=== PATIENT | female | born 1930 | race Caucasian/White ===

== ENCOUNTER 2017-09-12 21:18 | Inpatient (IN) | payer MEDICARE, MEDICAID ==
[~2017-09-12] VITALS: Ht 165.1 cm; Wt 74.8 kg
[2017-09-12 22:08] LABS: BASOPHILS % (AUTO) 0.6 % (0.0-2.0); EOSINOPHILS % (AUTO) 0.2 % (0.0-7.0); HEMATOCRIT 42.9 % (31.2-41.9); HEMOGLOBIN 14.8 g/dL (10.9-14.3); LYMPHOCYTES # (AUTO) 0.7 K/uL (20.0-40.0); LYMPHOCYTES % (AUTO) 11.6 % (20.5-51.5); MEAN CORPUSCULAR HEMOGLOBIN 30.9 uug (24.7-32.8); MEAN CORPUSCULAR HGB CONC 35 g/dL (32.3-35.6); MEAN CORPUSCULAR VOLUME 89.4 fL (75.5-95.3); MONOCYTES # (AUTO) 0.2 K/uL (2.0-10.0); MONOCYTES % (AUTO) 4.1 % (0.0-11.0); NEUTROPHILS # (AUTO) 4.7 K/uL (1.8-8.9); NEUTROPHILS % (AUTO) 83.5 % (38.5-71.5); PLATELET COUNT (AUTO) 150 K/uL (179-408); RED BLOOD CELL COUNT(AUTO) 4.81 MIL/uL (3.63-4.92); WHITE BLOOD COUNT (AUTO) 5.7 K/uL (3.8-11.8)
[2017-09-12 22:17] LABS: CARBON DIOXIDE 26 mmol/L (21-32); CHLORIDE 95 mmol/L (98-107); CREATININE 0.8 mg/dL (0.6-1.3); GLUCOSE 180 mg/dL (74-106); POTASSIUM 3.4 mmol/L (3.5-5.1); UREA NITROGEN, BLOOD 13 mg/dL (7-18)
[2017-09-12] MEDS ORDERED: CALC-811 PO (22:21)
[2017-09-12] MEDS ORDERED: MEMA5TAB PO (22:21)
[2017-09-12] MEDS ORDERED: LOSA100T15 PO (22:21)
[2017-09-12] MEDS ORDERED: TERA1CAP4 PO (22:21)
[2017-09-12] MEDS ORDERED: MELO15TA13 PO (22:21)
[2017-09-12] MEDS ORDERED: ESCI5TAB PO (22:21)
[2017-09-12] MEDS ORDERED: DONE10TA44 PO (22:21)
[2017-09-12] MEDS ORDERED: PREG100C PO (22:21)
[2017-09-12] MEDS ORDERED: PRAV40TA PO (22:21)
[2017-09-12] MEDS ORDERED: DILT240T12 PO (22:21)
[2017-09-12 22:29] LABS: ALANINE AMINOTRANSFERASE 24 U/L (14-59); ALKALINE PHOSPHATASE 66 U/L (50-136); ASPARTATE AMINOTRANSFERASE 25 U/L (15-37); BILIRUBIN,DIRECT 0.2 mg/dL (0.0-0.2); BILIRUBIN,TOTAL 0.6 mg/dL (0.2-1.0); TOTAL PROTEIN, SERUM 7.2 g/dL (6.4-8.2)
[2017-09-12] MEDS ORDERED: DIAZEPAM 10 MG/2 ML DISP.SYRIN IV ONE (22:30)
[2017-09-12] MEDS ORDERED: LORAZEPAM 2 MG/1 ML VIAL IV ONE (22:45)
[2017-09-12] MEDS ORDERED: ONDANSETRON IV *ER 4 MG/2 ML VIAL IV ONE (22:45)
[2017-09-12] MEDS ORDERED: ONDANSETRON 4 MG/2 ML VIAL ONE (22:47)
--- NOTE | 2017-09-12 22:58 | NUR ---
PT IN ROUTE TO CT IN [facility] WITH TRANSPORTER
--- NOTE | 2017-09-12 23:20 | NUR ---
PT BACK FROM CT IN [facility] WITH TRANSPORTER
--- NOTE | 2017-09-12 23:28 | NUR ---
[facility] FOR [facility]. WAITING FOR DR GRAHAM TO CALL
--- NOTE | 2017-09-12 23:56 | NUR ---
PT'S SON IS REQUESTING PHONE CALL PRIOR TO DISCHARGE FOR CHILD CARE LEAD TEACHER INESSA LAGUNA
[2017-09-13] MEDS ORDERED: LORAZEPAM 2 MG/1 ML VIAL ONE (00:01)
--- NOTE | 2017-09-13 00:05 | NUR ---
REPORT GIVEN TO [facility] NURSE, JOJO PARIS
--- NOTE | 2017-09-13 00:05 | NUR ---
REPAGED [facility] TACTICAL/MOBILE WATCH OFFICER. WAITING FOR DR RUEDA TO CALL BACK
--- NOTE | 2017-09-13 00:08 | NUR ---
DR SANCHEZ SPEAKING WITH DR RUEDA
[2017-09-13] MEDS ORDERED: POTASSIUM CHLORIDE 20 MEQ TAB.PRT.SR PO ONE (00:30)
[2017-09-13] MEDS ORDERED: ACETAMINOPHEN 325 MG TABLET PO PRN (00:30)
[2017-09-13] MEDS ORDERED: HYDROCODONE/APAP 5-325MG TABLET PO PRN (00:30)
[2017-09-13] MEDS ORDERED: Z GUARD REMEDY PASTE 57 GM TUBE TOP PRN (00:30)
[2017-09-13] MEDS ORDERED: MAGNESIUM HYDROXIDE 30 ML LIQUID UDC PO PRN (00:30)
[2017-09-13] MEDS ORDERED: ONDANSETRON 4 MG/2 ML VIAL IV PRN (00:30)
[2017-09-13] MEDS ORDERED: ZOLPIDEM 5 MG TABLET PO PRN (00:30)
[2017-09-13] MEDS ORDERED: IV NORMAL SALINE 1000 ML BAG IV ONE (00:45)
--- NOTE | 2017-09-13 00:45 | NUR ---
Pt. admitted to [facility], under care of Dr. RUEDA Belongs List completed
[2017-09-13 00:57] VITALS: BP 104/80
--- NOTE | 2017-09-13 01:00 | NUR ---
NEW ADMIT FROM ER, ADMITTED FOR R/O STROKE. NO FACIAL DROOPING, NO CONFUSION, DENIES NUMBNESS, NO ACUTE DISTRESS OR ANY DISCOMFORT ON ASSESSMENT. VSS WNL, SAFETY MEASURES IN PLACE, BED ALARM ON, CALL LIGHT WITHIN PATIENT'S REACH
[2017-09-13 04:00] VITALS: BP 128/71
[2017-09-13] MEDS ORDERED: BLOOD SUGAR DIAGNOSTIC 1 EACH STRIP VI SCH (06:00)
[2017-09-13] MEDS: HEPARIN SODIUM,PORCINE 5,000 UNITS/ML VIAL SQ SCH ×3 (06:42→21:39)
[2017-09-13] MEDS: BLOOD SUGAR DIAGNOSTIC 1 EACH STRIP VI SCH ×4 (06:48→20:38)
--- NOTE | 2017-09-13 06:56 | NUR ---
PATIENT SLEPT MOST OF THE NIGHT. NO S/S OF STROKE ON THIS SHIFT. DENIES DIZZINESS, NO FACIAL DROOPING OR SLURRED SPEECH ON THIS SHIFT. SAFETY MEASURES MAINTAINED AT ALL TIMES
[2017-09-13 06:58] LABS: THYROID STIMULATING HORMONE 0.671 mIU/mL (0.358-3.740)
[2017-09-13 08:07] LABS: BASOPHILS % (AUTO) 0.3 % (0.0-2.0); EOSINOPHILS % (AUTO) 0.1 % (0.0-7.0); HEMOGLOBIN 13.9 g/dL (10.9-14.3); LYMPHOCYTES # (AUTO) 0.6 K/uL (20.0-40.0); MEAN CORPUSCULAR HEMOGLOBIN 30.2 uug (24.7-32.8); MEAN CORPUSCULAR HGB CONC 34 g/dL (32.3-35.6); MEAN CORPUSCULAR VOLUME 89.4 fL (75.5-95.3); MONOCYTES # (AUTO) 0.3 K/uL (2.0-10.0); MONOCYTES % (AUTO) 4.8 % (0.0-11.0); NEUTROPHILS # (AUTO) 4.6 K/uL (1.8-8.9); NEUTROPHILS % (AUTO) 83.8 % (38.5-71.5); PLATELET COUNT (AUTO) 157 K/uL (179-408); RED BLOOD CELL COUNT(AUTO) 4.59 MIL/uL (3.63-4.92); WHITE BLOOD COUNT (AUTO) 5.5 K/uL (3.8-11.8)
[2017-09-13 08:09] LABS: CARBON DIOXIDE 24 mmol/L (21-32); CHLORIDE 102 mmol/L (98-107); CREATININE 0.6 mg/dL (0.6-1.3); GLUCOSE 123 mg/dL (74-106); POTASSIUM 4.3 mmol/L (3.5-5.1); UREA NITROGEN, BLOOD 11 mg/dL (7-18)
[2017-09-13 08:21] LABS: ALANINE AMINOTRANSFERASE 27 U/L (14-59); ALKALINE PHOSPHATASE 61 U/L (50-136); ASPARTATE AMINOTRANSFERASE 21 U/L (15-37); BILIRUBIN,TOTAL 0.5 mg/dL (0.2-1.0); CHOLESTEROL 187 mg/dL (<200); HDL CHOLESTEROL 82 mg/dL (40-60); TOTAL PROTEIN, SERUM 6.4 g/dL (6.4-8.2); TRIGLYCERIDES 30 MG/DL (30-150)
[2017-09-13] MEDS: TERAZOSIN 1 MG CAPSULE PO SCH (08:30)
[2017-09-13] MEDS: LOSARTAN POTASSIUM 50 MG TABLET PO SCH (08:30)
[2017-09-13] MEDS: ASPIRIN EC 81 MG TABLET.DR PO SCH (08:31)
[2017-09-13] MEDS: ESCITALOPRAM OXALATE 10 MG TABLET PO SCH (08:31)
[2017-09-13] MEDS: CALCIUM CARB/VITAMIN D 500MG-200UNITS TABLET PO SCH ×2 (08:31→17:08)
[2017-09-13] MEDS: DILTIAZEM HCL CD 240 MG CAP.SR.24H PO SCH (08:32)
[2017-09-13 11:47] VITALS: BP 128/68
--- NOTE | 2017-09-13 14:00 | NUR ---
PT WAS INFORMED OF MRI W/O CONTRAST AT 1800 VIA AMBULANCE. BLUE PHONE WAS USED. DIRECTOR INSTRUMENTATION #[id number]. PT GAVE CONSENT FOR MRI AND GAVE NURSE PERMISSION TO CONTACT INESSA HER SON. PT WAS ALSO AT THIS TIME GIVEN STROKE EDUCATION & PAMPHLET WAS OFFERED. PT HAS AN UNDERSTANDING OF STOKE SYMPTOMS. CONTINUE TO MONITOR PT.
--- NOTE | 2017-09-13 14:20 | NUR ---
1ST ATTEMPT TO INFORM SON INESSA OF PENDING MRI AT 1800.
[2017-09-13 16:17] LABS: *BILIRUBIN,URIN NEGATIVE (NEGATIVE); *BLOOD, URINE NEGATIVE (NEGATIVE); *CLARITY,URINE CLEAR (CLEAR); *COLOR,URINE LIGHT YELLOW (YELLOW); *KETONES,URINE NEGATIVE (NEGATIVE); *PROTEIN,URINE NEGATIVE (NEGATIVE); *UROBILINOGEN,URINE 0.2 E.U./dl (NORMAL); LEUKOCYTE ESTERASE ,URINE TRACE (NEGATIVE); NITRITE, URINE NEGATIVE (NEGATIVE); UGLUCOSE NEGATIVE (NEGATIVE)
[2017-09-13 16:25] LABS: BACTERIA,URINE NONE SEEN /HPF (NONE SEEN); RBC,URINE 0-3 /HPF (0-3); SQUAMOUS EPITHELIAL CELL,UR FEW /HPF (NONE SEEN)
[2017-09-13 16:34] LABS: *AMPHETAMINE, URINE NEGATIVE (NEGATIVE); *BARBITURATE, URINE NEGATIVE (NEGATIVE); *CANNABINOID, URINE NEGATIVE (NEGATIVE); *COCCAINE, URINE NEGATIVE (NEGATIVE); *OPIATE, URINE NEGATIVE (NEGATIVE); *PHENCYCLIDINE SCREEN,URINE NEGATIVE (NEGATIVE)
[2017-09-13 16:37] VITALS: BP 134/75
[2017-09-13] MEDS ORDERED: LORAZEPAM 2 MG/1 ML VIAL IV ONE (16:45)
--- NOTE | 2017-09-13 18:15 | NUR ---
PT IS AT [place] GETTING A MRI W/O CONTRAST OF THE BRAIN. HAS NOT RETURNED.
[2017-09-13 20:00] VITALS: BP 146/70
--- NOTE | 2017-09-13 20:00 | NUR ---
Pt observed to be resting at this time with son at bedside. No complaints of pain or dizziness at this time. Bed in low, locked position. Call light within reach. Tele noted to be sinus rhythm with HR at 68. Will continue to monitor closely.
[2017-09-13] MEDS ORDERED: MELOXICAM 7.5 MG TABLET PO SCH (21:00)
[2017-09-13] MEDS ORDERED: MEMANTINE HCL 5 MG TABLET PO SCH (21:00)
[2017-09-13] MEDS ORDERED: PREGABALIN 100 MG CAPSULE PO SCH (21:00)
[2017-09-13] MEDS ORDERED: ATORVASTATIN 10 MG TABLET PO SCH (21:00)
[2017-09-13] MEDS ORDERED: DONEPEZIL 10 MG TABLET PO SCH (21:00)
[2017-09-14] VITALS: BP 131/71
[2017-09-14] MEDS ORDERED: LEVOFLOXACIN 500 MG/D5W 500 MG in PREMIXED 1 EACH IV SCH ×2
[2017-09-14] MEDS ORDERED: LEVOFLOXACIN 500 MG/D5W 100 ML ONE (00:01)
[2017-09-14 04:00] VITALS: BP 120/67
--- NOTE | 2017-09-14 05:24 | NUR ---
Pt slept comfortably throughout the night. All needs attended to. No dizziness noted at this time. Bed in low, locked position with bed alarm on. Call light within reach. Will endorse accordingly.
[2017-09-14 06:47] LABS: BASOPHILS # (AUTO) 0.1 K/uL (0.0-8.0); BASOPHILS % (AUTO) 1.1 % (0.0-2.0); EOSINOPHILS # (AUTO) 0.1 K/uL (0.0-0.7); EOSINOPHILS % (AUTO) 1.5 % (0.0-7.0); HEMOGLOBIN 13.7 g/dL (10.9-14.3); LYMPHOCYTES # (AUTO) 1.5 K/uL (20.0-40.0); LYMPHOCYTES % (AUTO) 28.7 % (20.5-51.5); MEAN CORPUSCULAR HEMOGLOBIN 30.7 uug (24.7-32.8); MEAN CORPUSCULAR HGB CONC 34 g/dL (32.3-35.6); MEAN CORPUSCULAR VOLUME 89.8 fL (75.5-95.3); MONOCYTES # (AUTO) 0.4 K/uL (2.0-10.0); MONOCYTES % (AUTO) 8.4 % (0.0-11.0); NEUTROPHILS # (AUTO) 3.1 K/uL (1.8-8.9); NEUTROPHILS % (AUTO) 60.3 % (38.5-71.5); PLATELET COUNT (AUTO) 150 K/uL (179-408); RED BLOOD CELL COUNT(AUTO) 4.45 MIL/uL (3.63-4.92); WHITE BLOOD COUNT (AUTO) 5.2 K/uL (3.8-11.8)
[2017-09-14 07:01] LABS: CARBON DIOXIDE 27 mmol/L (21-32); CHLORIDE 101 mmol/L (98-107); CHOLESTEROL 179 mg/dL (<200); CREATININE 0.6 mg/dL (0.6-1.3); GLUCOSE 92 mg/dL (74-106); HDL CHOLESTEROL 72 mg/dL (40-60); MAGNESIUM 1.7 mg/dL (1.8-2.4); PHOSPHOROUS 2.2 mg/dL (2.5-4.9); TRIGLYCERIDES 64 MG/DL (30-150); UREA NITROGEN, BLOOD 13 mg/dL (7-18)
[2017-09-14] MEDS: DILTIAZEM HCL CD 240 MG CAP.SR.24H PO SCH (08:01)
[2017-09-14] MEDS: ESCITALOPRAM OXALATE 10 MG TABLET PO SCH (08:02)
[2017-09-14] MEDS: CALCIUM CARB/VITAMIN D 500MG-200UNITS TABLET PO SCH ×2 (08:03→16:10)
[2017-09-14] MEDS: LOSARTAN POTASSIUM 50 MG TABLET PO SCH (08:04)
[2017-09-14] MEDS: ASPIRIN EC 81 MG TABLET.DR PO SCH (08:04)
[2017-09-14] MEDS: TERAZOSIN 1 MG CAPSULE PO SCH (08:05)
[2017-09-14 12:05] VITALS: BP 118/68
[2017-09-14] MEDS ORDERED: MAGNESIUM OXIDE 400 MG TABLET PO ONE (13:00)
[2017-09-14] MEDS ORDERED: NEUTRA PHOS PACKET PO ONE (13:00)
[2017-09-14 15:39] VITALS: BP 135/42
[2017-09-14] MEDS ORDERED: LEVO500T2 PO (17:20)
--- NOTE | 2017-09-14 18:14 | NUR ---
PT D/C WITH ALL BELONGINGS, VALUABLES, PRESCRIPTIONS, AND EXIT CARE PACKET. ID BAND AND IV REMOVED. PT WAS PICKED UP BY SON INESSA WHO WILL BE TAKING HER HOME. PT IS STABLE TO D/C, CALM, COOPERATIVE, AOX3. PT APPROPRIATELY DRESS FOR D/C.
[2017-09-14 18:18] VITALS: BP 135/42
== END 2017-09-14 18:15 | disposition home health service (06) | DRG 194 ==
LOC: ER 21:20 → MED 09-13 00:04 → TELE 09-13 01:00 → MED 09-14 11:13
PROVIDERS: ADMIT Internal Medicine; ATTEND Internal Medicine
DX: J18.9 Pneumonia, unspecified organism (principal); E87.1 Hypo-osmolality and hyponatremia; F03.90 Unspecified dementia, unspecified severity, without behavioral disturbance, psychotic disturbance, mood disturbance, and anxiety; I11.9 Hypertensive heart disease without heart failure; I08.3 Combined rheumatic disorders of mitral, aortic and tricuspid valves; E78.5 Hyperlipidemia, unspecified; E87.6 Hypokalemia; F32.9 Major depressive disorder, single episode, unspecified; Z86.73 Personal history of transient ischemic attack (TIA), and cerebral infarction without residual deficits; M81.0 Age-related osteoporosis without current pathological fracture; Z79.899 Other long term (current) drug therapy; R73.9 Hyperglycemia, unspecified; R53.1 Weakness
CPT/HCPCS: 36415; 70030-TC; 70450; 70551; 71045; 80307; 83605; 83735; 84100; 84443; 85025; 85651; 85730; 87040; 87086; 92610; 93005; 93307; 93880; 97165; 97530; A4663; J1644; J1956; J2060; J2405; J7030; J7050